=== PATIENT | male | born 1955 | race Caucasian/White ===

== ENCOUNTER 2024-08-05 06:19 | Day surgery (SDC) | payer OTHER ==
[2024-08-05] VITALS (10 sets, daily range): BP systolic 126–149; BP diastolic 65–82; PULSE 72–89; RESP 15–20; TEMP 97.2–98.1
[~2024-08-05] VITALS: Ht 177.8 cm; Wt 88.0 kg
[~2024-08-05 06:19] MED LIST: ASPI-1197 PO; ATOR40TA69 PO; DOCU-116 PO; LISI10TA24 PO; MULT-1367 PO
[2024-08-05] MEDS: 0.9%NACL 1000ML 1,000 ML IV ONE (07:57)
[2024-08-05] MEDS ORDERED: proPOFol 10 MG/ML 20ML VIAL IV ONE ×3 (08:16→09:08)
[2024-08-05] MEDS ORDERED: LIDOCAINE PF 100MG/5ML (2%) SYRINGE 5ML ONE (08:16)
== END 2024-08-05 10:35 | disposition home or self-care (01) ==
LOC: ENDO 06:19 → DAH 06:19 → ENDO 10:35
PROVIDERS: ATTEND Internal Medicine Gastroenterology
DX: D50.9 Iron deficiency anemia, unspecified (principal); D12.0 Benign neoplasm of cecum; D12.2 Benign neoplasm of ascending colon; D12.3 Benign neoplasm of transverse colon; D12.5 Benign neoplasm of sigmoid colon; K62.1 Rectal polyp; K31.7 Polyp of stomach and duodenum; K22.89 Other specified disease of esophagus; K57.30 Diverticulosis of large intestine without perforation or abscess without bleeding; Z80.0 Family history of malignant neoplasm of digestive organs; K29.50 Unspecified chronic gastritis without bleeding; B96.81 Helicobacter pylori [H. pylori] as the cause of diseases classified elsewhere; I10 Essential (primary) hypertension; E78.5 Hyperlipidemia, unspecified; F17.210 Nicotine dependence, cigarettes, uncomplicated; Z86.73 Personal history of transient ischemic attack (TIA), and cerebral infarction without residual deficits; Z90.89 Acquired absence of other organs; Z98.890 Other specified postprocedural states; Z79.82 Long term (current) use of aspirin; Z79.899 Other long term (current) drug therapy
CPT/HCPCS: 43251; 45381; 45385; 45380; 43239; J7030 ×2; J2001; J2704 ×3; A4620; A4649; A4215 ×2; A4223; A4657; A4222; A4221; A4663; A4606; J3490